=== PATIENT | male | born 1960 | race Caucasian/White ===

== ENCOUNTER 2017-04-08 12:48 | Emergency (ER) | payer MEDICARE, MEDICAID ==
[~2017-04-08] VITALS: Ht 162.6 cm; Wt 98.1 kg
[~2017-04-08 12:48] MED LIST: ASPI-496 PO; CARV-39 PO; DIGO250T PO; FENO160T PO; FURO40TA6 PO; GABA600T2 PO; GLIP10TA13 PO; LAMO150T PO; LISI-167 PO; METF850T2 PO; NIAC1000 PO; OMEG1CAP2 PO; PRAV80TA2 PO; SPIR25TA3 PO; [UNRECOGNIZED DRUG - OTHER]; lantus SQ; novolog SQ; potassium PO
[2017-04-08 13:06] VITALS: BP 162/84
[2017-04-08] MEDS ORDERED: BACITRACIN ZINC OINT 500U/GM, 0.9 GM ONE (15:12)
== END 2017-04-08 15:26 | disposition home or self-care (01) ==
LOC: ED 15:20
DX: L03.031 Cellulitis of right toe (principal); E78.00 Pure hypercholesterolemia, unspecified; I11.0 Hypertensive heart disease with heart failure; I50.9 Heart failure, unspecified; E11.9 Type 2 diabetes mellitus without complications; Z88.8 Allergy status to other drugs, medicaments and biological substances
CPT/HCPCS: 82962; 99284

== ENCOUNTER 2020-08-03 19:00 | Emergency (ER) | payer MEDICARE, MEDICAID ==
[~2020-08-03] VITALS: Ht 162.6 cm; Wt 88.9 kg
[~2020-08-03 19:00] MED LIST changes: +AMLO-211 PO; +ATOR40TA PO; +CHOL500015 PO; -DIGO250T PO; +DIGO250T3 PO; -GABA600T2 PO; +GABA600T7 PO; +INSU100V13 INJ; -LAMO150T PO; +LAMO150T4 PO; +METF850T10 PO; -METF850T2 PO; -SPIR25TA3 PO; +SPIR25TA5 PO
[2020-08-03 19:04] VITALS: BP 138/74
--- NOTE | 2020-08-03 19:32 | NUR ---
PT HERE WITH C/O RIGHT GROIN BUMP X4 DAYS. PA STUDENT AT BEDSIDE FOR EVAL.
== END 2020-08-03 20:18 | disposition home or self-care (01) ==
LOC: ED 19:30
DX: L03.314 Cellulitis of groin (principal); E11.9 Type 2 diabetes mellitus without complications; Z95.0 Presence of cardiac pacemaker; Z87.891 Personal history of nicotine dependence; Z88.8 Allergy status to other drugs, medicaments and biological substances
CPT/HCPCS: 99283; 99284